=== PATIENT | male | born 1995 | race Caucasian/White ===

== ENCOUNTER 2018-11-16 17:48 | Emergency (ER) | payer OTHER ==
[~2018-11-16] VITALS: Ht 188 cm; Wt 126.5 kg
[2018-11-16 17:53] VITALS: BP 146/91
== END 2018-11-16 19:15 | disposition home or self-care (01) ==
LOC: ED 19:06
DX: T78.40XA Allergy, unspecified, initial encounter (principal); X58.XXXA Exposure to other specified factors, initial encounter
CPT/HCPCS: 99284; J7512; Q0163